=== PATIENT | male | born 1965 ===

== ENCOUNTER 2017-07-30 10:38 | Day surgery (SDC) | payer OTHER ==
[2017-07-30] MEDS ORDERED: ceFAZolin 1 GM in Dextrose (*) 2 GM/100 ML BAG IVPB ONE (10:44)
[2017-07-30] MEDS ORDERED: Buffered Lidocaine 0.9% SYRIN* 5 ML/SYR SYRINGE ONE (10:45)
[2017-07-30] MEDS ORDERED: Lidocaine 2% PF* 10 ML AMP ONE (11:11)
[2017-07-30 13:19] VITALS: BP 155/109
--- NOTE | 2017-07-31 10:56 | OP ---
DATE OF OPERATION: 07/30/17 - [facility] DATE OF : 65 ATTENDING SURGEON: Ten Mcdaniel MD INSPECTOR OUTSIDE STEAM DISTRIBUTION: JOCELYNE Randall PRE-OP DIAGNOSIS: Left fleshy mass, medial aspect first MTP joint. POST-OP DIAGNOSIS: Left fleshy mass, medial aspect first MTP joint. OPERATIVE PROCEDURE: Excision of left forefoot mass under local anesthetic. DESCRIPTION OF PROCEDURE: The patient was taken to the operating room where 2% plain lidocaine was used to create a medial forefoot block. I made a longitudinal incision over the medial eminence, carefully dissecting subcutaneously to surround this cystic firm mass and removing it in its entirety. There was no definitive stalk. Mass itself was about three-quarters of an inch of the size at cross section. Mass was sent to pathology. We then closed after irrigating with 3-0 Vicryl and 3-0 nylon for the skin and a compression dressing applied. [id number] #: [id number] MTDD
== END 2017-07-30 13:19 | disposition home or self-care (01) ==
LOC: OR 10:38
PROVIDERS: ATTEND Orthopaedic Surgery
DX: D21.22 Benign neoplasm of connective and other soft tissue of left lower limb, including hip (principal); M10.9 Gout, unspecified; Z72.0 Tobacco use; J30.89 Other allergic rhinitis
CPT/HCPCS: 88304; 88341; 88342; J0690; J2001